=== PATIENT | female | born 1955 | race African-American/Black ===

== ENCOUNTER 2018-12-15 14:32 | Outpatient (CLI) | payer MEDICARE ==
--- NOTE | 2018-12-15 15:26 | MMO ---
Bilateral MAMMO Bilat Diag [facility]. CLINICAL HISTORY: Patient is 63 years old and is seen for diagnostic exam. The patient has the following family history of breast cancer: sister, at age 31. The patient has no personal history of cancer. VIEWS: The views performed were: bilateral craniocaudal with tomosynthesis; bilateral mediolateral oblique with tomosynthesis; and bilateral mediolateral. FILMS COMPARED: The present examination has been compared to a prior imaging study performed at [facility] on 12/15/2018. MAMMOGRAM FINDINGS: The breasts are almost entirely fat. Benign calcifications are noted bilaterally. No mammographic or sonograhic abnormality is seen at the site of palpable concern in the left breast. There are no suspicious masses, suspicious calcifications, or new areas of architectural distortion. IMPRESSION: THERE IS NO MAMMOGRAPHIC EVIDENCE OF MALIGNANCY. A ROUTINE FOLLOW-UP MAMMOGRAM IN 1 YEAR IS RECOMMENDED. THE RESULTS OF THIS EXAM WERE SENT TO THE PATIENT. ACR BI-RADS Category 2 - Benign finding MAMMOGRAPHY NOTE: 1. A negative mammogram report should not delay a biopsy if a dominant of clinically suspicious mass is present. 2. Approximately 10% to 15% of breast cancers are not detected by mammography. 3. Adenosis and dense breasts may obscure an underlying neoplasm.
--- NOTE | 2018-12-15 17:08 | ULT ---
LEFT BREAST ULTRASOUND: HISTORY: Palpable abnormality in the left upper breast. CORRELATION: Mammogram from the same day. FINDINGS: Sonographic evaluation of the region of palpable concern in the upper breast was performed, from the 11 o'clock to 1 o'clock positions. There is a shadowing calculus at the 1 o'clock position. No dee d or cystic mass is otherwise seen. IMPRESSION: BI-RADS category 2-Benign findings. Return to annual mammographic screening. POS: [facility]
== END 2018-12-15 14:33 | disposition home or self-care (01) ==
LOC: BICMAMMO 14:32
PROVIDERS: ATTEND Family Medicine
DX: N63.20 Unspecified lump in the left breast, unspecified quadrant (principal); Z80.3 Family history of malignant neoplasm of breast
CPT/HCPCS: 76642; 77066; G0279

== ENCOUNTER 2019-03-27 08:28 | Day surgery (SDC) | payer MEDICARE, MEDICAID ==
[2019-03-24 11:11] VITALS: BMI 46.0
[2019-03-27] MEDS ORDERED: Labetalol HCl 100 MG/20 ML VIAL ONE (11:38)
--- NOTE | 2019-03-27 11:51 | OP ---
DATE OF PROCEDURE: 03/27/2019 PROCEDURES PERFORMED: Esophagogastroduodenoscopy (diagnostic), colonoscopy with polypectomy, and control of hemorrhage. INDICATION FOR PROCEDURE: Anemia of unknown etiology, hepatic cirrhosis, and abnormal GI imaging (recent CT scan showing a long segment of inflammation in the descending and sigmoid colons consistent with diverticulitis). DESCRIPTION OF PROCEDURE: After the risks and benefits of the procedures were explained to the patient including risks of bleeding, infection, perforation, reactions to anesthesia, aspiration, and/or pain, informed consent was obtained. The patient was then taken to the endoscopy suite, where deep sedation was administered via propofol and anesthesia support. Once adequate sedation was achieved, the standard gastroscope was introduced into the mouth with the intubation of the esophagus, stomach, and the proximal small intestines with the findings listed below. Upon completion of this portion of the procedure, all equipment was removed from the patient and the bed was rotated 180 degrees in anticipation for the colonoscopy. A digital rectal examination was performed, followed by introduction of the standard colonoscope, which was then advanced to the terminal ileum without difficulty. The quality of the prep was good with a [id number] amount of retained stool that was amenable to irrigation and suctioning. The patient tolerated the procedure well with no immediate perioperative complications. Upon conclusion of the colonoscopy, all equipment was removed from the patient and the patient was transferred to Day Stay in satisfactory condition. EGD FINDINGS: Esophagus: Normal-appearing mucosa was seen in the proximal, mid, and distal esophagus. There was no evidence of erosions, ulcerations, mass, lesions, esophageal varices, or active/recent bleeding. Stomach: Normal-appearing mucosa was seen in the gastric cardia, fundus, body, antrum, greater curvature, and incisura. There was no evidence of erosions, ulcerations, mass, lesions, portal hypertensive gastropathy, gastric varices, or active/recent bleeding. Duodenum: Normal-appearing mucosa was seen in both the duodenal bulb and second portion of the duodenum. There was no evidence of erosions, ulcerations, mass, lesions, or active/recent bleeding. IMPRESSION: 1. Normal upper endoscopy without evidence of esophageal or gastric varices. 2. No etiology for anemia was seen during this examination. COLONOSCOPY FINDINGS: Digital rectal exam: Small external hemorrhoids as well as perianal skin tags were seen on external examination. Colon findings: Normal-appearing mucosa was seen within the terminal ileum as well as at the ileocecal valve and appendiceal orifice. However, a 2.5 to 3 cm flat appearing polyp was seen within the cecum extending across the fold that was immediately adjacent to the appendiceal orifice. This polyp was removed in a piecemeal fashion using snare cautery polypectomy. Given the flat nature of the polyp, there is a possibility of some residual polypoid tissue that was left behind. Hemoclip x4 was then placed to approximate the mucosal defect created by the snare cautery polypectomy. Scattered diverticula were seen throughout the entire colon including the ascending, transverse, descending, and sigmoid colons with the highest concentration of small and large mouth diverticula being in the sigmoid colon and distal descending colon. There was no evidence of diverticulitis, erythema, or increased swelling associated with the diverticulosis during this examination. Otherwise, normal-appearing mucosa was seen in the ascending and transverse colons. A 4 mm polyp was seen in the descending colon and completely removed with snare cautery polypectomy. It was retrieved and placed in a specimen jar for evaluation. Other than the diverticulosis as mentioned above, there was no other abnormality seen in the sigmoid colon. A 3 to 4 mm polyp was then seen in the rectum and completely removed with cold snare polypectomy. It was retrieved and placed in a specimen jar for evaluation. No abnormalities were seen on rectal retroflexion. IMPRESSION: 1. A large 2.5 to 3 cm flat polyp seen in the cecum, status post piecemeal removal with snare cautery polypectomy and hemoclip x4. 2. A 4 mm semipedunculated descending colon polyp, status post snare cautery polypectomy. 3. A 3 mm rectal polyp, status post cold snare polypectomy. 4. Severe pancolonic diverticulosis without evidence of diverticulitis. 5. No etiology for anemia seen during this examination. RECOMMENDATIONS: 1. We will follow up on the pathology report with repeat colonoscopy recommended in 6 to 12 months given the piecemeal removal of the large cecal polyp today. 2. Would recommend a higher fiber diet given the presence of severe diverticulosis. 3. We will continue to trend H and H and transfuse as necessary to maintain an H and H of 7/21. 4. We will follow up on the iron indices obtained during her most recent outpatient clinic visit. 5. Would follow up in the GI clinic in 3 weeks for further evaluation of her anemia and pathology report. 6. Continue medications as instructed, but would hold any anticoagulation for the next 48 to 72 hours. Job ID: [id number]
== END 2019-03-27 12:48 | disposition home or self-care (01) ==
LOC: SDC 08:28
PROVIDERS: ATTEND Internal Medicine
PROC: 0DJ08ZZ Inspection of Upper Intestinal Tract, Via Natural or Artificial Opening Endoscopic (ICD-10-PCS; principal; 2019-03-27)
PROC: 0DBH8ZZ Excision of Cecum, Via Natural or Artificial Opening Endoscopic (ICD-10-PCS; 2019-03-27)
PROC: 0DBP8ZZ Excision of Rectum, Via Natural or Artificial Opening Endoscopic (ICD-10-PCS; 2019-03-27)
PROC: 0DBM8ZZ Excision of Descending Colon, Via Natural or Artificial Opening Endoscopic (ICD-10-PCS; 2019-03-27)
PROC: 0W3P8ZZ Control Bleeding in Gastrointestinal Tract, Via Natural or Artificial Opening Endoscopic (ICD-10-PCS; 2019-03-27)
DX: D12.0 Benign neoplasm of cecum (principal); D12.4 Benign neoplasm of descending colon; K62.1 Rectal polyp; D64.9 Anemia, unspecified; K64.4 Residual hemorrhoidal skin tags; K74.60 Unspecified cirrhosis of liver; K57.50 Diverticulosis of both small and large intestine without perforation or abscess without bleeding; I13.0 Hypertensive heart and chronic kidney disease with heart failure and stage 1 through stage 4 chronic kidney disease, or unspecified chronic kidney disease; E11.22 Type 2 diabetes mellitus with diabetic chronic kidney disease; N18.9 Chronic kidney disease, unspecified; I50.9 Heart failure, unspecified; E78.00 Pure hypercholesterolemia, unspecified; M19.90 Unspecified osteoarthritis, unspecified site; Z79.899 Other long term (current) drug therapy
CPT/HCPCS: 88305

== ENCOUNTER 2019-07-05 10:16 | Day surgery (SDC) | payer MEDICARE, MEDICAID ==
[~2019-07-05 10:16] MED LIST: Lidocaine 1% PF 5 ML VIAL ONE; PROPOFOL 200 MG/20 ML VIAL ONE
--- NOTE | 2019-07-05 12:58 | OP ---
DATE OF PROCEDURE: 07/05/2019 PROCEDURES PERFORMED: Colonoscopy with snare polypectomy and hemoclip deployment. PREPROCEDURE DIAGNOSES: Cecal adenoma with high-grade dysplasia, partially removed three months ago. POSTPROCEDURE DIAGNOSES: 1. Residual polyp situated between ileocecal valve and appendiceal orifice, dimension approximate 2 x 1 cm. 2. Left diverticulosis coli with hypertrophic folds. DESCRIPTION OF PROCEDURE: Written consents were obtained prior to procedure. After adequate sedation, rectal exam performed was normal. The endoscope was advanced to cecum with ease. The quality of the bowel prep was good. An elongated 2 x 1 cm multilobulated semi-flat polyp was noted between the ileocecal valve and appendiceal orifice. This polyp was raised with a total of 9 cm of saline. The polyp was removed by piecemeal. There was some very flat superficial polypoid change in the medial edge. This was cauterized with soft coag. A total of two resolution hemoclips were deployed to approximate the edges. The ascending colon appeared normal. A small nonbleeding vascular ectasia was noted at the hepatic flexure. The transverse colon and descending colon appeared normal. Diffuse diverticulosis was noted throughout the sigmoid colon with hypertrophic folds causing luminal narrowing. The rectal vault appeared normal including retroflexion. The patient tolerated the procedure well. ASSESSMENT: 1. Elongated 2 x 1 cm polyp, status post saline lift polypectomy. 2. Diverticulosis coli in left colon. RECOMMENDATION: 1. Await biopsy results. 2. Pending biopsy result, the patient may need a followup colonoscopy in one year. Job ID: [id number]
== END 2019-07-05 13:00 | disposition home or self-care (01) ==
LOC: SDC 10:16
PROVIDERS: ATTEND Internal Medicine Gastroenterology
PROC: 0DBH8ZX Excision of Cecum, Via Natural or Artificial Opening Endoscopic, Diagnostic (ICD-10-PCS; principal; 2019-07-05)
PROC: 3E0H8GC Introduction of Other Therapeutic Substance into Lower GI, Via Natural or Artificial Opening Endoscopic (ICD-10-PCS; 2019-07-05)
PROC: 0W3P8ZZ Control Bleeding in Gastrointestinal Tract, Via Natural or Artificial Opening Endoscopic (ICD-10-PCS; 2019-07-05)
DX: C18.0 Malignant neoplasm of cecum (principal); K57.30 Diverticulosis of large intestine without perforation or abscess without bleeding; K55.20 Angiodysplasia of colon without hemorrhage; M19.90 Unspecified osteoarthritis, unspecified site; E11.9 Type 2 diabetes mellitus without complications; K21.9 Gastro-esophageal reflux disease without esophagitis; E78.00 Pure hypercholesterolemia, unspecified; I11.0 Hypertensive heart disease with heart failure; I50.9 Heart failure, unspecified; J45.909 Unspecified asthma, uncomplicated; Z79.84 Long term (current) use of oral hypoglycemic drugs; Z79.899 Other long term (current) drug therapy
CPT/HCPCS: 88305; J2001; J2704

== ENCOUNTER 2019-10-05 08:44 | Day surgery (SDC) | payer MEDICARE, MEDICAID ==
[2019-10-04 10:48] VITALS: BMI 46.6
[2019-10-05] MEDS ORDERED: PROPOFOL 200 MG/20 ML VIAL ONE (10:48)
[2019-10-05] MEDS ORDERED: Hetastarch 6% 500 ML 500 ML ONE (11:15)
--- NOTE | 2019-10-05 12:24 | OP ---
DATE OF PROCEDURE: 10/05/2019 PROCEDURES PERFORMED: Colonoscopy with submucosal injection, polypectomy and control of hemorrhage. 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 DESCRIPTION OF PROCEDURE: After the risks and benefits of the procedure were explained to the patient including risks of bleeding, infection, perforation, reactions to anesthesia, aspiration and/or pain, informed consent was obtained. The patient was then taken to the endoscopy suite, where deep sedation was administered via propofol and anesthesia support. Once adequate sedation was achieved, a digital rectal examination was performed followed by introduction of the standard colonoscope, which was then advanced to the terminal ileum without difficulty. The quality of the prep was fair, but adequate for visualization of large mucosal lesions. The patient tolerated the procedure well with no immediate perioperative complications. Upon conclusion of the procedure, all equipment was removed from the patient and she was transferred to Day Stay in satisfactory condition. FINDINGS: Digital rectal examination: Normal findings were seen on external exam. Colon findings: Normal-appearing mucosa was seen in the terminal ileum as well as at the ileocecal valve and appendiceal orifice, and a 7 to 8 linear polyp was seen in the cecum adjacent to the appendiceal orifice consistent with the previously described tubulovillous adenoma with high-grade dysplasia. Using 6% hetastarch, it was injected underneath the polyp itself and raised to an adequate position. Then, using hot snare polypectomy, the polyp was completely removed with en bloc incision. The peripheral aspect of the mucosal defect made. It was then touched up with the tip of the monopolar probe for destruction of any residual tissue. Given the larger mucosal defect, a hemoclip x1 was then placed to approximate the mucosal defect with good hemostasis achieved. Otherwise, a moderate amount of retained solid and liquid stool was seen throughout the rest of the colon and was inadequate for the visualization of small mucosal lesions (less than 5 mm in size), but adequate for the evaluation of large gross lesions. Of the mucosa seen, normal-appearing mucosa was then seen in the ascending, transverse, descending, sigmoid colon and rectum. Scattered diverticula that were both large and small were seen in the distal descending and sigmoid colons, but did not exhibit any increased mucosal erythema or signs of diverticulitis. Normal findings were then seen on rectal retroflexion. IMPRESSION: 1. A 7 to 8 mm polypoid lesion of the cecum consistent with the previously described tubulovillous adenoma with high-grade dysplasia, now status post submucosal injection with hetastarch and en bloc resection with hot snare polypectomy; hemoclip x1 used to approximate the mucosal defect. 2. Fair colonic preparation, which was inadequate for the visualization of small mucosal lesions. Given the number of prior colonoscopies, this was adequate for purposes today. 3. Moderate distal descending and sigmoid colon diverticulosis. RECOMMENDATIONS: 1. We will follow up on the biopsy results for further evaluation of possible high-grade dysplasia or progression to adenocarcinoma. 2. Would repeat the colonoscopy in 3 months to ensure complete resection of this particular polyp. 3. Would recommend a higher fiber diet given the presence of diverticulosis on exam. 4. Follow up in the GI clinic as needed. Job ID: [id number]
== END 2019-10-05 12:55 | disposition home or self-care (01) ==
LOC: SDC 08:44
PROVIDERS: ATTEND Internal Medicine
PROC: 0DBH8ZZ Excision of Cecum, Via Natural or Artificial Opening Endoscopic (ICD-10-PCS; principal; 2019-10-05)
PROC: 0W3P8ZZ Control Bleeding in Gastrointestinal Tract, Via Natural or Artificial Opening Endoscopic (ICD-10-PCS; 2019-10-05)
DX: Z12.11 Encounter for screening for malignant neoplasm of colon (principal); D12.0 Benign neoplasm of cecum; K57.30 Diverticulosis of large intestine without perforation or abscess without bleeding; I10 Essential (primary) hypertension; E78.5 Hyperlipidemia, unspecified; F17.290 Nicotine dependence, other tobacco product, uncomplicated; J45.909 Unspecified asthma, uncomplicated; M19.90 Unspecified osteoarthritis, unspecified site; Z86.010 Personal history of colon polyps; Z79.899 Other long term (current) drug therapy
CPT/HCPCS: 88305; J2704

== ENCOUNTER 2020-03-04 05:37 | Outpatient (CLI) | payer MEDICARE, MEDICAID, OTHER ==
[2020-03-05 13:10] LABS: SARS-CoV-2 MS2 Positive; SARS-CoV-2 N Gene Negative; SARS-CoV-2 S Gene Negative; SARS-CoV-2 orf1ab Negative
== END 2020-03-04 05:38 | disposition home or self-care (01) ==
LOC: LABBT 05:37
PROVIDERS: ATTEND Internal Medicine
DX: Z01.812 Encounter for preprocedural laboratory examination (principal); Z11.59 Encounter for screening for other viral diseases; D12.6 Benign neoplasm of colon, unspecified
CPT/HCPCS: 87635; U0003

== ENCOUNTER 2020-03-08 07:06 | Day surgery (SDC) | payer MEDICARE, MEDICAID ==
[2020-02-29 09:53] VITALS: BMI 48.5
--- NOTE | 2020-03-08 09:43 | OP ---
DATE OF PROCEDURE: 03/08/2020 PROCEDURE PERFORMED: Colonoscopy (diagnostic). INDICATIONS FOR PROCEDURE: Prior history of tubulovillous adenoma with high-grade dysplasia within the cecum with residual tissue. DESCRIPTION OF PROCEDURE: After the risks and benefits of the procedure were explained to the patient including risks of bleeding, infection, perforation, reactions to anesthesia, aspiration, and/or pain, informed consent was obtained. The patient was then taken to the endoscopy suite where she was maneuvered into the left lateral decubitus position followed by a digital rectal examination. Once the digital rectal examination was performed, the standard colonoscope was introduced into the rectum with intubation of the entire colon and advanced to the terminal ileum without difficulty. The quality of the prep was good; however, there were areas of small amounts of solid stool that were easily moved to obtain adequate visualization of the colonic mucosa. The patient tolerated the procedure well with no immediate perioperative complications. On conclusion of the procedure, all equipment was removed from the patient and she was transferred to Day Stay in satisfactory condition. FINDINGS: Digital rectal exam: Perianal skin tags were seen on external examination. Colon findings: Normal-appearing mucosa was seen in the terminal ileum as well as at the ileocecal valve and appendiceal orifice. The site of the previously seen cecal polyp on prior colonoscopies was not seen during today's examination. A linear white appearance to the colonic mucosa was seen, indicative of scar formation and prior polypectomy; however, there was no residual tissue nor abnormality or nodularity to the mucosa in this region. Multiple small and large diverticula were seen in the ascending, transverse, descending, and sigmoid colons. There was a small amount of blood seen throughout the entire colon as well. However, with close examination of the colonic mucosa, the bleeding source was not seen. Normal-appearing mucosa was then seen in the rectum with normal findings on rectal retroflexion. IMPRESSION: 1. The previously described cecal polyp was not seen on examination today, indicative of complete resection of the cecal polyp. 2. Severe pancolonic diverticulosis. 3. Small amount of blood seen throughout the entire colon with no discernable etiology, but likely due to diverticular inflammation and/or possible diverticular bleed. 4. Perianal skin tags. RECOMMENDATIONS: 1. Would repeat the colonoscopy in 2 years for surveillance of the large cecal polyp with high-grade dysplasia. 2. Recommend a higher fiber diet given the presence of diverticulosis. 3. Follow up in the GI Clinic as needed. Job ID: [id number]
[2020-03-08] MEDS ORDERED: PROPOFOL 200 MG/20 ML VIAL ONE (11:57)
== END 2020-03-08 09:30 | disposition home or self-care (01) ==
LOC: SDC 07:06
PROVIDERS: ATTEND Internal Medicine
PROC: 0DJD8ZZ Inspection of Lower Intestinal Tract, Via Natural or Artificial Opening Endoscopic (ICD-10-PCS; principal; 2020-03-08)
DX: Z09 Encounter for follow-up examination after completed treatment for conditions other than malignant neoplasm (principal); K57.31 Diverticulosis of large intestine without perforation or abscess with bleeding; K64.4 Residual hemorrhoidal skin tags; J45.909 Unspecified asthma, uncomplicated; E78.5 Hyperlipidemia, unspecified; E11.9 Type 2 diabetes mellitus without complications; K21.9 Gastro-esophageal reflux disease without esophagitis; M19.90 Unspecified osteoarthritis, unspecified site; M10.9 Gout, unspecified; F17.290 Nicotine dependence, other tobacco product, uncomplicated; I11.0 Hypertensive heart disease with heart failure; I50.9 Heart failure, unspecified; E78.00 Pure hypercholesterolemia, unspecified; Z86.010 Personal history of colon polyps; Z79.84 Long term (current) use of oral hypoglycemic drugs; Z79.899 Other long term (current) drug therapy
CPT/HCPCS: J2704